=== PATIENT | male | born 2000 | race Asian ===

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

== ENCOUNTER 2020-07-19 23:41 | Emergency (ER) | payer BC ==
[~2020-07-19] VITALS: Ht 188 cm; Wt 163.7 kg
[2020-07-20 00:48] VITALS: BP 179/87; TEMP 99.4
== END 2020-07-20 00:48 | disposition home or self-care (01) ==
LOC: ED 23:41
DX: S70.362A Insect bite (nonvenomous), left thigh, initial encounter (principal); W57.XXXA Bitten or stung by nonvenomous insect and other nonvenomous arthropods, initial encounter; Y92.89 Other specified places as the place of occurrence of the external cause
CPT/HCPCS: 99281

== ENCOUNTER 2021-03-01 13:18 | Emergency (ER) | payer OTHER ==
[~2021-03-01] VITALS: Ht 188 cm; Wt 140.6 kg
[2021-03-01 14:31] VITALS: BP 160/80; TEMP 98.9
== END 2021-03-01 14:31 | disposition home or self-care (01) ==
LOC: ED 13:18
DX: S05.01XA Injury of conjunctiva and corneal abrasion without foreign body, right eye, initial encounter (principal); S00.211A Abrasion of right eyelid and periocular area, initial encounter; W20.8XXA Other cause of strike by thrown, projected or falling object, initial encounter; Y92.89 Other specified places as the place of occurrence of the external cause
CPT/HCPCS: 99283

== ENCOUNTER 2022-01-16 11:25 | Emergency (ER) | payer BC ==
[~2022-01-16] VITALS: Ht 188 cm; Wt 122.5 kg
[2022-01-16 11:30] VITALS: BP 141/72; TEMP 97.6
[2022-01-16] MEDS ORDERED: CLIN300C PO (12:18)
[2022-01-16] MEDS ORDERED: ONDA4TAB3 PO (12:18)
== END 2022-01-16 12:32 | disposition home or self-care (01) ==
LOC: ED 11:25
DX: L03.311 Cellulitis of abdominal wall (principal)
CPT/HCPCS: 90471; 90715; 99283; J0696